=== PATIENT | female | born 1975 | race Caucasian/White ===

== ENCOUNTER 2019-11-12 23:02 | Emergency (ER) | payer MEDICAID ==
[~2019-11-12] VITALS: Ht 180.3 cm; Wt 127.0 kg
[2019-11-12 23:18] VITALS: BP 148/95
== END 2019-11-13 05:35 | disposition left against medical advice (07) ==
LOC: EDBD 23:02 → ER 23:02
DX: Z53.21 Procedure and treatment not carried out due to patient leaving prior to being seen by health care provider (principal)
CPT/HCPCS: 93005